=== PATIENT | male | born 1965 | race Caucasian/White ===

== ENCOUNTER 2017-06-10 02:56 | Emergency (ER) | payer SELFPAY ==
--- NOTE | 2017-06-10 02:59 | EDPHY ---
H & P Time Seen by Provider: 06/10/17 02:59 HPI/ROS: HPI CHIEF COMPLAINT: Alcohol Intoxication HISTORY OF PRESENT ILLNESS: Patient is a 51-year-old male, familiar to myself as well as the emergency room, he is homeless, and drinks alcohol daily, he presents emergency room after was found down on the sidewalk in front of the [address] Patient was unable to be easily aroused 911 was called. EMS arrived to find him with a normal blood sugar. Blood sugar 93. However highly intoxicated alcohol use unable to walk. And is unable to talk. He does respond to painful stimuli. No signs of trauma on exam. But was found down on the sidewalk. Past Medical History: Alcoholism, daily alcohol use. Past Surgical History: No recent surgery Social History: Homeless, alcohol use. Family History: Noncontributory ROS REVIEW OF SYSTEMS: A comprehensive 10 point review of systems is otherwise negative aside from elements mentioned in the history of present illness. Exam Constitutional Intoxicated, triage nursing summary reviewed, vital signs reviewed, Sleepy, smells of alcohol Eyes normal conjunctivae and sclera, horizontal beating nystagmus consistent acute alcohol intoxication, otherwise pupils equal and react to light HENT normal inspection, atraumatic, moist mucus membranes, no epistaxis, neck supple/ no meningismus, no raccoon eyes. Respiratory clear to auscultation bilaterally, normal breath sounds, no respiratory distress, no wheezing. Cardiovascular rate normal, regular rhythm, no murmur, no edema, distal pulses normal. Gastrointestinal soft, non-tender, no rebound, no guarding, normal bowel sounds, no distension, no pulsatile mass. Genitourinary no CVA tenderness. Musculoskeletal no midline vertebral tenderness, full range of motion, no calf swelling, no tenderness of extremities, no meningismus, good pulses, neurovascularly intact. Skin pink, warm, & dry, no rash, skin atraumatic. Neurologic sleepy, intoxicated with alcohol,, alert and oriented x 3, AAOx3, moves all 4 extremities equally, motor intact, sensory intact, CN II-XII intact , , normal vision, normal speech. Psychiatric normal mood/affect. Heme/Lymph/Immune no lymphadenopathy. Differential Diagnosis: Includes but is not limited to in a particular order acute alcohol intoxication, alcohol abuse, dehydration, electrolyte abnormality , nausea vomiting from acute alcohol intoxication Medical Decision Making: Plan for this patient CT head without contrast rule out intracranial bleed, check serum alcohol level, basic electrolytes re- evaluate. Re-evaluation: CT scan head without contrast called to me by Dr. Bustillo. Negative for acute traumatic intracranial injury. Blood work reviewed. Elevated alcohol level in the 295. 0354: Will continue monitor patient for sobriety. Or worsening of condition. 0545: Patient resting comfortably no acute distress. Ambulatory well throughout the emergency room. Stable gait. Clinically sober. Has no complaints. CT scan of the head is unremarkable. Patient is on arc hold. Source: Patient, EMS - Personal History Tetanus Vaccine Date: 2007 - Medical/Surgical History Hx Asthma: No Hx Chronic Respiratory Disease: No Hx Diabetes: No Hx Cardiac Disease: No Hx Renal Disease: No Hx Cirrhosis: No Hx Alcoholism: No Hx HIV/AIDS: No Hx Splenectomy or Spleen Trauma: No Other PMH: Denies - Social History Smoking Status: Never smoked Constitutional: Initial Vital Signs Temperature (C) 36.3 C 06/10/17 03:00 Heart Rate 101 H 06/10/17 03:00 Respiratory Rate 15 06/10/17 03:00 Blood Pressure 117/79 06/10/17 03:00 O2 Sat (%) 97 06/10/17 03:00 O2 Delivery Mode Room Air Allergies/Adverse Reactions: No Known Allergies Allergy (Verified 06/10/17 03:02) Home Medications: Medication Instructions Recorded No Medications [NO HOME 1 ea [facility] [place] 09/03/10 MEDICATIONS] Medical Decision Making - Data Points Laboratory Results: Laboratory Results 06/10/17 03:07 06/10/17 03:07 06/10/17 06/10/17 03:07 03:07 WBC 7.21 10^3/uL 10^3/uL (3.80-9.50) RBC 4.66 10^6/uL 10^6/uL (4.40-6.38) Hgb 14.3 g/dL g/dL (13.7-17.5) Hct 42.3 % % (40.0-51.0) MCV 90.8 fL fL (81.5-99.8) MCH 30.7 pg pg (27.9-34.1) MCHC 33.8 g/dL g/dL (32.4-36.7) RDW 16.8 % H % (11.5-15.2) Plt Count 230 10^3/uL 10^3/uL (150-400) MPV 9.7 fL fL (8.7-11.7) Neut % (Auto) 53.0 % % (39.3-74.2) Lymph % (Auto) 39.4 % % (15.0-45.0) Johnston % (Auto) 5.8 % % (4.5-13.0) Eos % (Auto) 1.0 % % (0.6-7.6) Baso % (Auto) 0.4 % % (0.3-1.7) Nucleat RBC Rel Count 0.0 % % (0.0-0.2) Absolute Neuts (auto) 3.82 10^3/uL 10^3/uL (1.70-6.50) Absolute Lymphs (auto) 2.84 10^3/uL 10^3/uL (1.00-3.00) Absolute Monos (auto) 0.42 10^3/uL 10^3/uL (0.30-0.80) Absolute Eos (auto) 0.07 10^3/uL 10^3/uL (0.03-0.40) Absolute Basos (auto) 0.03 10^3/uL 10^3/uL (0.02-0.10) Absolute Nucleated RBC 0.00 10^3/uL 10^3/uL (0-0.01) Immature Gran % 0.4 % % (0.0-1.1) Immature Gran # 0.03 10^3/uL 10^3/uL (0.00-0.10) Sodium 147 mEq/L H mEq/L (135-145) Potassium 3.5 mEq/L mEq/L (3.5-5.2) Chloride 107 mEq/L mEq/L (97-110) Carbon Dioxide 25 mEq/l mEq/l (22-31) Anion Gap 15 mEq/L mEq/L (8-16) BUN 14 mg/dL mg/dL (7-23) Creatinine 0.7 mg/dL mg/dL (0.7-1.3) Estimated GFR > 60 Glucose 179 mg/dL H mg/dL (70-100) Calcium 8.1 mg/dL L mg/dL (8.5-10.4) Ethyl Alcohol 295 mg/dL H mg/dL (0-10) Medications Given: Discontinued Medications Sodium Chloride (Ns) 1,000 mls @ 0 mls/hr IV ONCE ONE PRN Reason: Wide Open Stop: 06/10/17 03:26 Last Admin: 06/10/17 03:26 Dose: 1,000 mls Departure - Departure Disposition: Home, Routine, Self-Care Clinical Impression: Alcoholic intoxication Qualifiers: Complication of substance-induced condition: uncomplicated Qualified Code(s): F10.920 - Alcohol use, unspecified with intoxication, uncomplicated Condition: Good Instructions: Alcohol Intoxication (ED), Abuse of Alcohol (ED) Referrals: NONE *PRIMARY CARE P,. [Primary Care Provider] - As per Instructions
[2017-06-10 03:03] VITALS: TEMP 97.3
[2017-06-10 03:15] LABS: PLATELET COUNT 230 10^3/uL (150-400)
[2017-06-10] MEDS ORDERED: NS 1,000 ML IV ONE (03:25)
[2017-06-10 05:40] VITALS: BP 117/74; PULSE 76; RESP 16; O2SAT 96
[2017-06-10] MEDS ORDERED: CHLORDIAZEPOXIDE 25MG PREPK#6 BTL TAKEHOME ONE (05:45)
== END 2017-06-10 05:52 | disposition home or self-care (01) ==
LOC: EDUNIT# → EDBD
DX: F10.920 Alcohol use, unspecified with intoxication, uncomplicated (principal)
CPT/HCPCS: G0480